=== PATIENT | female | born 1995 | race American Indian/Alaskan Native ===

== ENCOUNTER 2018-02-28 17:22 | Emergency (ER) | payer MEDICAID, SELFPAY ==
--- NOTE | 2018-02-28 17:28 | ED.ANIMALBIT ---
HPI - Animal Bite <JORDAN Mckinney - Last Filed: 02/28/18 22:32> General Chief Complaint: Animal Bite Stated Complaint: BIT BY DOG LEFT LEG Time Seen by Provider: 02/28/18 17:28 Source: patient Mode of arrival: ambulatory Limitations: no limitations History of Present Illness HPI narrative: Healthy 23-year-old female here for complaint of a dog bite to her left anterior thigh. [place] and about 3 o'clock in the afternoon a dog came and bit her on the thigh. She reports that the dog's cut off sawyer is did not stop and left the area. This happened in [facility]. She states no other injuries or concerns at this time. She does not know her last tetanus shot. She was able to ambulate into the emergency room. complaint: animal bite Related Data Allergies Allergy/AdvReac Type Severity Reaction Status Date / Time No Known Drug Allergies Allergy Verified 02/28/18 17:42 Review of Systems <JORDAN Mckinney - Last Filed: 02/28/18 22:32> Constitutional Denies chills, Denies fever(s), Denies lethargy and Denies weakness Eyes Denies change in vision, Denies eye discharge, Denies irritation and Denies loss of vision ENT Ears, Nose, Mouth, and Throat: Denies change in voice, Denies neck pain and Denies sore throat Cardiovascular Denies chest pain, Denies irregular heart rhythm, Denies lightheadedness, Denies palpitations, Denies dyspnea, Denies dyspnea on exertion and Denies orthopnea Respiratory Denies cough, Denies dyspnea, Denies dyspnea on exertion and Denies wheezing Gastrointestinal Gastrointestinal: Denies abdominal pain, Denies change in bowel habits, Denies diarrhea, Denies nausea and Denies vomiting Genitourinary Denies hematuria, Denies flank pain, Denies urinary incontinence and Denies urinary urgency Musculoskeletal Denies neck pain Comments: Dog bite/abrasion to left anterior thigh Integumentary/Breasts Denies pruritus, Denies erythema, Denies rash and Denies wounds Neurologic Denies confusion, Denies loss of vision and Denies weakness Psychiatric Denies anxiety, Denies confusion, Denies depression, Denies homicidal ideation and Denies suicidal ideation Endocrine Denies palpitations Hematologic/Lymphatic Denies easy bruising Allergic/Immunologic Denies wheezing Exam <JORDAN Mckinney - Last Filed: 02/28/18 22:32> Initial Vital Signs Initial Vital Signs: Vital Signs Temperature 98.4 F 02/28/18 17:34 Pulse Rate 88 02/28/18 17:34 Respiratory Rate 20 02/28/18 17:34 Blood Pressure 142/87 H 02/28/18 17:34 Pulse Oximetry 100 02/28/18 17:34 Const General: cooperative and well developed Nutritional Appearance: well nourished Orientation: alert, awake, oriented x3 and not confused [facility] Mouth: oral mucosae normal and moist mucous membranes Eyes Conjunctivae: conjunctivae normal Sclera: sclerae normal Pupils: PERRL EOM: EOM intact bilaterally Resp Effort & Inspection: normal respiratory effort, able to speak in complete sentences, no respiratory distress and no use of accessory muscles Auscultation: clear to auscultation bilaterally, no rales, no rhonchi and no wheezes Cardio Rate: regular rate Rhythm: regular rhythm Heart Sounds: no click, no gallops, no murmurs and no rubs Pulses: normal peripheral pulses Skin General: no rashes or lesions noted, No jaundice and No petechiae Neuro General: alert, oriented x3, gait normal and no focal motor deficits Speech: speech normal Extrem Other: Superficial abrasion to the left anterior thigh with no puncture wounds or lacerations seen. Slight ecchymosis to the area. Distal sensation is intact. Distal pulses are intact. Distal range of motion is intact. <Twan Leyva DO - Last Filed: 03/01/18 07:12> Initial Vital Signs Initial Vital Signs: Vital Signs Temperature 98.4 F 02/28/18 17:34 Pulse Rate 88 02/28/18 17:34 Respiratory Rate 20 02/28/18 17:34 Blood Pressure 142/87 H 02/28/18 17:34 Pulse Oximetry 100 02/28/18 17:34 Course <JORDAN Mckinney - Last Filed: 02/28/18 22:32> Orders Ordered: Discontinued Medications Amoxicillin/Clavulanate Potassium (Augmentin 875-125 Mg) 1 tab PO NOW ONE Stop: 02/28/18 17:35 Last Admin: 02/28/18 17:43 Dose: 1 tab Diphtheria/Tetanus/Acell Pertussis (Adacel) 0.5 ml IM .ONCE ONE Stop: 02/28/18 17:35 Last Admin: 02/28/18 17:43 Dose: 0.5 ml Ibuprofen (Advil) 400 mg PO NOW ONE Stop: 02/28/18 17:35 Last Admin: 02/28/18 17:43 Dose: 400 mg Vital Signs - 8 hr 02/28/18 17:34 Temperature 98.4 F Pulse Rate 88 Respiratory Rate 20 Blood Pressure 142/87 H Pulse Oximetry 100 <Twan Leyva DO - Last Filed: 03/01/18 07:12> Orders Ordered: Discontinued Medications Amoxicillin/Clavulanate Potassium (Augmentin 875-125 Mg) 1 tab PO NOW ONE Stop: 02/28/18 17:35 Last Admin: 02/28/18 17:43 Dose: 1 tab Diphtheria/Tetanus/Acell Pertussis (Adacel) 0.5 ml IM .ONCE ONE Stop: 02/28/18 17:35 Last Admin: 02/28/18 17:43 Dose: 0.5 ml Ibuprofen (Advil) 400 mg PO NOW ONE Stop: 02/28/18 17:35 Last Admin: 02/28/18 17:43 Dose: 400 mg Vital Signs - 8 hr 02/28/18 17:34 Temperature 98.4 F Pulse Rate 88 Respiratory Rate 20 Blood Pressure 142/87 H Pulse Oximetry 100 MDM - Animal Bite <JORDAN Mckinney - Last Filed: 02/28/18 22:32> [facility] Narrative Medical decision making narrative: She reports daughter was a domesticated dog so low risk of rabies. [facility] by report was filled out. Her tetanus was updated in the emergency room. Wound area was cleansed well and dressed with bacitracin and a dressing. [id number] Tylenol or Motrin as needed for any discomfort. Antibiotic prophylaxis not indicated due as superficial wound. Follow up with primary care provider later this week. Return emergency room for any worsening symptoms or signs of infection. Discharge Plan Departure Patient Disposition: Home, Self-Care Clinical Impression: Dog bite Discharge Date/Time: 02/28/18 18:03 Interventions: ED Discharge Assessment Last Done: 02/28/18 18:01 Instructions: DI for Dog Bite Activity Restrictions/Additional Instructions: A grazing wound to the left thigh was cleansed and dressed with bacitracin and a dressing. Dress wound daily with bacitracin and dressing until healed. Use [id number] Tylenol or Motrin as needed for any discomfort. Follow up with primary care provider later this week. Tetanus was updated in the emergency room. For any worsening symptoms or signs of infection return to the emergency room. Referrals: [facility] [Provider Group] <Twan Leyva DO - Last Filed: 03/01/18 07:12> [facility] ED Attending Dejaature Attestation: I was available for consultation during this patient's emergency department encounter
[2018-02-28 17:34] VITALS: BP 142/87; PULSE 88; RESP 20; TEMP 36.9; O2SAT 100
[2018-02-28] MEDS: TET,DIPH,PERTUSS(ACELL),VAC/PF 0.5 ML SYRINGE IM (17:43)
[2018-02-28] MEDS: IBUPROFEN 400 MG TABLET PO (17:43)
[2018-02-28] MEDS: AMOXICILLIN/CLAV 875/125 MG 1 TAB PO (17:43)
== END 2018-02-28 18:03 | disposition home or self-care (01) ==
PROVIDERS: Emergency Provider Nurse Practitioner Family
DX: S81.852A Open bite, left lower leg, initial encounter (principal); W54.0XXA Bitten by dog, initial encounter
CPT/HCPCS: 90471; 99283; 90715

== ENCOUNTER 2018-12-28 22:07 | Emergency (ER) | payer MEDICAID, SELFPAY ==
[2018-12-28 22:14] VITALS: BMI 20.5
[2018-12-28 22:18] VITALS: BP 108/63; PULSE 85; RESP 15; TEMP 37; O2SAT 100
[2018-12-28 22:33] LABS: Bacteria Urine None Seen
[2018-12-28] MEDS: ONDANSETRON 4 MG/2 ML INJ IV (22:49)
[2018-12-28] MEDS: SODIUM CHLORIDE 0.9% 1,000 ML 1000 ML IV (22:49)
[2018-12-28 22:51] LABS: Add Manual Diff / Slide Review NO; Basophils Absolute Auto 0 /uL (0-100); Basophils Percent Auto 0.5 % (0-2); Eosinophils Absolute Auto 100 /uL (0-450); Eosinophils Percent Auto 2.1 % (2-4); Hematocrit 38.4 % (36-46); Hemoglobin 12.9 g/dL (12.0-16.0); Lymphocytes Absolute Auto 2700 /uL (1100-4500); Lymphocytes Percent Auto 44.7 % (25-40); Mean Corpuscular HGB Conc 33.7 % (30-36); Mean Corpuscular Hemoglobin 29.4 PG (26-34); Mean Corpuscular Volume 87.4 fL (80-100); Monocytes Absolute Auto 400 /uL (0-900); Neutrophils Absolute Auto 2700 /uL (1500-7000); Neutrophils Percent Auto 45.7 % (50-75); Platelet Count 194 X10^3/uL (150-400); Red Blood Cell Count 4.39 X10^6/uL (4.0-5.2); Red Cell Distribution Width 13.8 % (11.6-14.8); White Blood Cell Count 5.9 X10^3/uL (4.5-11.0)
[2018-12-28 22:51] LABS: Culture Indicated Urine Cult Not Indicated; RBC Urine 0-1/HPF (0-5/HPF); WBC Urine 0-1/HPF (0-5/HPF)
[2018-12-28 22:59] LABS: Alanine Aminotransferase 14 IU/L (9-52); Albumin 4.4 g/dL (3.5-5.0); Albumin Globulin Ratio 1.4 (1.0-2.8); Alkaline Phosphatase 72 U/L (38-126); Aspartate Aminotransferase 25 IU/L (14-36); Bilirubin Total 0.5 mg/dL (0.2-1.3); Blood Urea Nitrogen 14 mg/dL (7-17); Calcium 9.2 mg/dL (8.4-10.2); Carbon Dioxide 27 mmol/L (22-32); Chloride 103 mmol/L (98-107); Estimated Glomerular Filt Rate > 60.0 mL/min (>60); Globulin 3.2 g/dL (1.7-4.1); Glucose 93 mg/dL (70-100); HEMOLYSIS < 15 (0-50); Potassium 3.8 mmol/L (3.4-5.1); Sodium 138 mmol/L (137-145); Total Protein 7.6 g/dL (6.3-8.2)
--- NOTE | 2018-12-28 23:02 | ED_ITS ---
HPI - Headache General Chief Complaint: Headache Stated Complaint: LIGHTHEADED Time Seen by Provider: 12/28/18 23:01 Source: patient and family Mode of arrival: ambulatory Limitations: no limitations History of Present Illness HPI Narrative: Patient is a 23-year-old female who presents with headache and dizziness ongoing for the last 5 days. She typically does not get headaches. She woke up 5 days ago with this headache. She felt like the room was spinning has been nauseated at times. She has been taking Tylenol, ibuprofen and Dramamine [id number]. Nothing seems to be helping it does not really seem be getting worse but she really can't get out of bed. She denies fever or chills no neck pain no rash. MD Complaint: headache Onset description: sudden Severity: moderate Quality: aching Related Data Previous Rx's Medication Instructions Recorded ondansetron 4 mg PO Q6-8H PRN #10 tab 12/29/18 Allergies Allergy/AdvReac Type Severity Reaction Status Date / Time No Known Drug Allergies Allergy Verified 02/28/18 17:42 Review of Systems Review of Systems GENERAL: Denies chills, fatigue, malaise, fever, sweats, travel HEENT: Denies sinus pain, ear pain, sore throat, difficulty swallowing, neck pain RESPIRATORY: Denies dyspnea, cough, wheezing, hemoptysis, sputum. CARDIOVASCULAR: Denies chest pain, palpitations, orthopnea, edema GASTROINTESTINAL: Denies nausea, vomiting, abdominal pain, diarrhea, constipation, melena. : Denies dysuria, frequency, incontinence, hematuria, urinary retention, flank pain. MUSCULOSKELETAL: Denies weakness, joint pain, or bony pain SKIN: No rash, no erythema, no pruritus NEUROLOGIC: HPI PSYCHIATRIC: No concerning psychosocial issues. 12 point review of systems is negative except for those stated above and HPI PFSH Medical History Patient denies significant medical history (Acute) Social History Smoking Status: Never smoker Social History Smoking Status: Never smoker Exam Initial Vital Signs Initial Vital Signs: Vital Signs Temperature 98.6 F 12/28/18 22:18 Pulse Rate 85 12/28/18 22:18 Respiratory Rate 15 12/28/18 22:18 Blood Pressure 108/63 12/28/18 22:18 Pulse Oximetry 100 12/28/18 22:18 GENERAL: Alert young female appears to not feel well. Curled up in position HEENT: Head atraumatic,EOMI, pupils reactive CARDIOVASCULAR: Regular rate and rhythm without murmurs, rubs or gallops. RESPIRATORY: Breath sounds equal bilaterally, no wheezes rales or rhonchi. ABDOMEN: Soft, nontender. Normoactive bowel sounds all 4 quadrants. No guarding or rebound. EXTREMITIES: Normal range of motion, no clubbing or edema. Neurovascularly intact NEUROLOGICAL: Alert and oriented x4.Normal gait and speech. Cranial nerves II through XII grossly intact. Clinical Services Professional strength equal bilaterally sensation to soft touch equal bilaterally SKIN: Warm, dry, no laceration, no petechiae, no rashes or lesions. Course Orders Ordered: ED Orders 12/28/18 22:30 Urine Microscopic Stat 12/28/18 22:40 Complete Blood Count AUTO DIFF Stat Comprehensive Metabolic Panel Stat 12/28/18 23:08 CT head/brain wo con Stat Discontinued Medications Diphenhydramine HCl (Benadryl) 25 mg IV NOW ONE Stop: 12/29/18 00:19 Last Admin: 12/29/18 00:26 Dose: 25 mg Sodium Chloride (Normal Saline 0.9%) 1,000 mls @ 1,000 mls/hr IV BOLUS ONE Stop: 12/28/18 23:41 Last Infusion: 12/28/18 23:56 Dose: 0 mls/hr Admin: 12/28/18 22:49 Dose: 1,000 mls/hr Ketorolac Tromethamine (Toradol) 30 mg IV NOW ONE Stop: 12/28/18 23:01 Last Admin: 12/28/18 23:51 Dose: 30 mg Ondansetron HCl (Zofran) 4 mg IV NOW ONE Stop: 12/28/18 22:43 Last Admin: 12/28/18 22:49 Dose: 4 mg Prochlorperazine (Compazine) 10 mg IV NOW ONE Stop: 12/29/18 00:19 Last Admin: 12/29/18 00:27 Dose: 10 mg Vital Signs - 8 hr 12/28/18 22:18 12/29/18 00:45 12/29/18 01:39 Temperature 98.6 F Pulse Rate 85 66 89 Respiratory Rate 15 14 14 Blood Pressure 103/47 L Blood Pressure [Left Arm] 108/63 101/65 Pulse Oximetry 100 100 98 MDM - Headache Lab Data Attestation: I reviewed the patient's lab results. Result diagrams: 12/28/18 22:40 12/28/18 22:40 Lab Results 12/28/18 12/28/18 12/28/18 Range/Units 22:30 22:40 22:40 WBC 5.9 (4.5-11.0) X10^3/uL RBC 4.39 (4.0-5.2) X10^6/uL Hgb 12.9 (12.0-16.0) g/dL Hct 38.4 (36-46) % MCV 87.4 (80-100) fL MCH 29.4 (26-34) PG MCHC 33.7 (30-36) % RDW 13.8 (11.6-14.8) % Plt Count 194 (150-400) X10^3/uL Neut % (Auto) 45.7 L (50-75) % Lymph % (Auto) 44.7 H (25-40) % [place] % (Auto) 7.0 (3-14) % Eos % (Auto) 2.1 (2-4) % Baso % (Auto) 0.5 (0-2) % Neut # (Auto) 2700 (9833-9683) /uL Lymph # (Auto) 2700 (2047-9987) /uL [place] # (Auto) 400 (0-900) /uL Eos # (Auto) 100 (0-450) /uL Baso # (Auto) 0 (0-100) /uL Sodium 138 (137-145) mmol/L Potassium 3.8 (3.4-5.1) mmol/L Chloride 103 (98-107) mmol/L Carbon Dioxide 27 (22-32) mmol/L BUN 14 (7-17) mg/dL Creatinine 0.70 (0.52-1.04) mg/dL Estimated GFR > 60.0 (>60) mL/min BUN/Creatinine Ratio 20.0 (6-22) Glucose 93 (70-100) mg/dL Calcium 9.2 (8.4-10.2) mg/dL Total Bilirubin 0.5 (0.2-1.3) mg/dL AST 25 (14-36) IU/L ALT 14 (9-52) IU/L Alkaline Phosphatase 72 (38-126) U/L Total Protein 7.6 (6.3-8.2) g/dL Albumin 4.4 (3.5-5.0) g/dL Globulin 3.2 (1.7-4.1) g/dL Albumin/Globulin Ratio 1.4 (1.0-2.8) Urine RBC 0-1/hpf (0-5/HPF) Urine WBC 0-1/hpf (0-5/HPF) Urine Bacteria None seen (None) Ur Culture Indicated? Cult not indicated Point of Care Testing Test Results Negative Imaging Data CT scan - head: Radiologist's impression: operation shift supervisor report: No acute intracranial disease. MDM Narrative Medical decision making narrative: The patient initially not feeling much better after Zofran and Toradol. She is given Benadryl Compazine. Now sitting up with overall clinically appears much better and improved. She states that she feels better and is ready and able to go home. She is given Zofran to go home with. Symptoms more consistent with vertigo and migraine like headache. She does with ambulatory to the restroom couple of times no assistance. Discharge Plan Departure Patient Disposition: Home Clinical Impression: Benign paroxysmal positional vertigo Qualifiers: Laterality: unspecified laterality Qualified Code(s): H81.10 - Benign paroxysm al vertigo, unspecified ear Discharge Date/Time: 12/29/18 01:39 Interventions: ED Discharge Assessment Last Done: 12/29/18 01:39 Instructions: DI for Migraine, DI for Benign Paroxysmal Positional Vertigo Activity Restrictions/Additional Instructions: *You have been diagnosed with benign paroxysmal positional vertigo *What to do: Rest, increase fluids *Continue to take medications as directed Zofran 4 mg every 6-8 hours if needed for nausea or vomiting *Follow up with your primary care provider in 2-3 days *Return to ER if you should have persistent dizziness inability to tolerate fluids, worsening headache or any new, worsening or concerning symptoms Prescriptions: New ondansetron 4 mg tablet,disintegrating 4 mg PO Q6-8H PRN (Reason: nausea and vomiting) Qty: 10 RF: 0
--- NOTE | 2018-12-28 23:08 | DI.CT.S_ITS ---
PROCEDURE: CT HEAD/BRAIN WO CON INDICATIONS: headache 5 days getting worse dizzy TECHNIQUE: Noncontrast 4.5 mm thick angled axial sections acquired from the foramen magnum to the vertex, with coronal and sagittal reformats. For radiation dose reduction, the following was used: automated exposure control, adjustment of mA and/or kV according to patient size. COMPARISON: None. FINDINGS: Image quality: Excellent. CSF spaces: Basal cisterns are patent. No extra-axial fluid collections. Ventricles are normal in size and shape. Brain: No midline shift. No intracranial masses or hemorrhage. Rm-white matter interface is normal. Skull and face: Calvarium and visualized facial bones are intact, without suspicious lesions. Sinuses: Visualized sinuses and mastoids are clear. IMPRESSION: No acute intracranial disease process. Dictated by: Graciela Salomon MD, PhD on 12/29/2018 at 7:28 Approved by: Graciela Salomon MD, PhD on 12/29/2018 at 7:29
[2018-12-28] MEDS: KETOROLAC 60 MG/2 ML VIAL 30 MG IV (23:51)
[2018-12-29] MEDS: diphenhydrAMINE 50 MG/ML VIAL 25 MG IV (00:26)
[2018-12-29] MEDS: PROCHLORPERAZINE 10 MG/2 ML VIAL IV (00:27)
[2018-12-29 00:45] VITALS: BP 101/65; PULSE 66; RESP 14; O2SAT 100
[2018-12-29 01:39] VITALS: BP 103/47; PULSE 89; RESP 14; O2SAT 98
== END 2018-12-29 01:39 | disposition home or self-care (01) ==
PROVIDERS: Emergency Provider Emergency Medicine
DX: H81.10 Benign paroxysmal vertigo, unspecified ear (principal); R51 Headache
CPT/HCPCS: 36591; 70450; 80053; 81015; 81025; 85025; 96361; 96374; 96375; 99283; 99284; J0780; J1200; J1885; J2405

== ENCOUNTER → 2019-12-07 14:24 | Outpatient (CLI) | payer MEDICAID, SELFPAY ==
[2019-12-07 16:29] LABS: Prolactin 19.7 ng/mL (3.0-18.6)
[2019-12-07 16:44] LABS: TSH w/ Reflex to FT4 0.72 uIU/mL (0.47-4.68)
== END ==
PROVIDERS: Referring Provider Registered Nurse; Visit Provider Registered Nurse
DX: N97.9 Female infertility, unspecified (principal); N92.0 Excessive and frequent menstruation with regular cycle
CPT/HCPCS: 36415; 84144; 84146; 84443

== ENCOUNTER → 2020-07-04 12:54 | Outpatient (CLI) | payer MEDICAID, SELFPAY | PROVIDERS: Referring Provider Internal Medicine; Visit Provider Internal Medicine | DX: Z23 Encounter for immunization (principal) | CPT/HCPCS: 90471; 90686 ==

== ENCOUNTER 2020-10-06 17:19 | Emergency (ER) | payer MEDICAID, SELFPAY ==
[2020-10-06 17:20] VITALS: BP 130/78; PULSE 94; RESP 14; TEMP 36.7; O2SAT 99
--- NOTE | 2020-10-06 17:32 | DI.US.S_ITS ---
PROCEDURE: US PELVIC COMPLETE INDICATIONS: FIVE WEEKS . BLEEDING. LAST MENSTRUAL PERIOD 08/27/20 TECHNIQUE: Real-time scanning was performed of the pelvic organs, with image documentation. Additional endovaginal scanning was necessary due to incomplete visualization of the adnexal and endometrial structures by transabdominal scanning. COMPARISON: None. FINDINGS: Uterus: Uterus is normal in size at 7.4 x 4.8 x 3.8 cm. The endometrium measures 11 mm in combined thickness. No evidence for significant decidual reaction of the endometrium. No intrauterine gestation visualized. Ovaries: Right ovary measures 3.7 x 2.2 x 1.6 cm. Left ovary measures 2.8 x 2.7 x 1.6 cm. No ovarian or adnexal mass lesions. Other: Small amount of pelvic free fluid in the posterior cul-de-sac. IMPRESSION: 1. No sonographic evidence for intrauterine gestation. Findings may represent an early intrauterine gestation although a missed not excluded. 2. Normal sonographic appearance of the bilateral ovaries. Although less likely, ectopic cannot be completely excluded at this time. Recommend continued clinical and laboratory evaluations with serial quantitative HCG measurements and followup imaging as indicated. Dictated by: Pee Siddiqi M.D. on 10/06/2020 at 18:16 Approved by: Pee Siddiqi M.D. on 10/06/2020 at 18:20
[2020-10-06 17:42] LABS: Add Manual Diff / Slide Review NO; Basophils Absolute Auto 0 /uL (0-100); Basophils Percent Auto 0.6 % (0-2); Eosinophils Absolute Auto 0 /uL (0-450); Eosinophils Percent Auto 0.5 % (2-4); Hematocrit 40.3 % (36-46); Hemoglobin 13.5 g/dL (12.0-16.0); Lymphocytes Absolute Auto 1400 /uL (1100-4500); Lymphocytes Percent Auto 40.3 % (25-40); Mean Corpuscular HGB Conc 33.6 % (30-36); Mean Corpuscular Hemoglobin 29.1 PG (26-34); Mean Corpuscular Volume 86.6 fL (80-100); Monocytes Absolute Auto 500 /uL (0-900); Monocytes Percent Auto 13.3 % (3-14); Neutrophils Absolute Auto 1600 /uL (1500-7000); Neutrophils Percent Auto 45.3 % (50-75); Platelet Count 188 X10^3/uL (150-400); Red Blood Cell Count 4.65 X10^6/uL (4.0-5.2); Red Cell Distribution Width 13.1 % (11.6-14.8); White Blood Cell Count 3.6 X10^3/uL (4.5-11.0)
--- NOTE | 2020-10-06 17:42 | PC.NURSE ---
pt, bleeding as per triage note.
[2020-10-06 17:49] LABS: Alanine Aminotransferase 14 IU/L (<35); Albumin 4.4 g/dL (3.5-5.0); Albumin Globulin Ratio 1.3 (1.0-2.8); Alkaline Phosphatase 70 U/L (38-126); Aspartate Aminotransferase 31 IU/L (14-36); BUN Creatinine Ratio 18.5 (6-22); Blood Urea Nitrogen 12 mg/dL (7-17); Calcium 8.6 mg/dL (8.4-10.2); Carbon Dioxide 29 mmol/L (22-32); Chloride 102 mmol/L (98-107); Estimated Glomerular Filt Rate > 60.0 mL/min (>60); Globulin 3.4 g/dL (1.7-4.1); Glucose 130 mg/dL (70-100); HEMOLYSIS < 15 (0-50); Potassium 3.3 mmol/L (3.4-5.1); Sodium 136 mmol/L (137-145); Total Protein 7.8 g/dL (6.3-8.2)
--- NOTE | 2020-10-06 17:54 | ED.PREGNANCY ---
HPI - <DOLORES Paiz - Last Filed: 10/06/20 19:22> General Chief complaint: Vaginal Bleeding Stated complaint: 5Wks , Bleeding Time Seen by Provider: 10/06/20 17:30 Source: patient Mode of arrival: Ambulatory Limitations: no limitations History of Present Illness HPI Narrative: The patient is a 25-year-old female nonsmoker who denies pertinent medical history, G1, P 0 who presents with a chief complaint of vaginal bleeding during early . She states her last menstrual period date was 08/27/2020, that she is about 5 weeks and noticed to have some spotting 3 days ago when she wiped. She states that initially the blood was brown, but it changed her red today so she came to the emergency department. She complains of slight cramping. She states she is not blood through pad. Denies any urinary urgency frequency or dysuria. She has a telehealth appointment with Emir SCHMIDT at the end of the month. This is her 1st . She denies any vaginal discharge fever etcetera Related Data Home Medications Medication Instructions Recorded Confirmed vit no.[id number] 1 tab PO DAILY 10/06/20 10/06/20 [Classic ] Allergies Allergy/AdvReac Type Severity Reaction Status Date / Time No Known Drug Allergies Allergy Verified 10/06/20 17:36 Review of Systems <DOLORES Paiz - Last Filed: 10/06/20 19:22> Review of Systems Narrative: GENERAL: Denies chills, fatigue, malaise, fever, sweats. HEENT: Denies sinus pain, ear pain, sore throat, difficulty swallowing, dizziness. RESPIRATORY: Denies dyspnea, cough, wheezing, hemoptysis, sputum. CARDIOVASCULAR: Denies chest pain, palpitations, orthopnea, edema, GASTROINTESTINAL: Denies nausea, vomiting, abdominal pain, diarrhea, constipation, melena. : See HPI MUSCULOSKELETAL: denies weakness, joint pain, or bony pain SKIN: Denies rash, skin lesions, or other NEUROLOGIC: Denies weakness, headache, numbness, change in speech, confusion, seizures, incoordination. PSYCHIATRIC: No concerning psychosocial issues. 12 point review of systems is negative except for those stated above Exam <DOLORES Paiz - Last Filed: 10/06/20 19:22> Narrative Exam Narrative: GENERAL: This is a well-nourished, well-developed patient, in no acute distress HEAD: Atraumatic. Normocephalic. No temporal or scalp tenderness. EYES: Pupils equal round and reactive. Extraocular motions intact. No scleral icterus. No injection or drainage. ENT: Nose without bleeding, purulent drainage or septal hematoma. See HPI Airway patent. NECK: Trachea midline. No JVD or lymphadenopathy. Supple, nontender, no meningeal signs. CARDIOVASCULAR: Regular rate and rhythm RESPIRATORY: Clear to auscultation. Breath sounds equal bilaterally. No wheezes, rales, or rhonchi. No cough. No increased respiratory effort. No accessory muscle use. GASTROINTESTINAL: Abdomen soft, slight suprapubic cramping palpation, nondistended. Active bowel sounds all 4 quadrants. No guarding. EXTREMITIES: No clubbing, cyanosis, or edema. No joint tenderness, effusion, or edema noted. BACK: Nontender without deformity or crepitance. No flank tenderness. NEURO: AOx3. SKIN: No rash or erythema on visible skin Initial Vital Signs Initial Vital Signs: Vital Signs Temperature 98.1 F 10/06/20 17:20 Pulse Rate 94 H 10/06/20 17:20 Respiratory Rate 14 10/06/20 17:20 Blood Pressure 130/78 10/06/20 17:20 Pulse Oximetry 99 10/06/20 17:20 <Joanne Figueroa DO - Last Filed: 10/07/20 05:18> Initial Vital Signs Initial Vital Signs: Vital Signs Temperature 98.1 F 10/06/20 17:20 Pulse Rate 94 H 10/06/20 17:20 Respiratory Rate 14 10/06/20 17:20 Blood Pressure 130/78 10/06/20 17:20 Pulse Oximetry 99 10/06/20 17:20 Scores <SUSANNE Paiz - Last Filed: 10/06/20 19:22> GCS [place] coma scale eye opening: Spontaneous [place] coma scale verbal response: Orientated [place] coma scale motor response: Obey commands [place] coma scale total score: 15 Course <SUSANNE Paiz - Last Filed: 10/06/20 19:22> Orders Ordered: Discontinued Medications Potassium Chloride (Potassium Chloride 20 Meq Tab) 20 meq PO NOW ONE Stop: 10/06/20 19:18 Last Admin: 10/06/20 19:23 Dose: Not Given Documented by: MICHAEL Vital Signs Vital signs: Vital Signs - 8 hr 10/06/20 17:20 Temperature 98.1 F Pulse Rate 94 H Respiratory Rate 14 Blood Pressure 130/78 Pulse Oximetry 99 <Joanne Figueroa DO - Last Filed: 10/07/20 05:18> Orders Ordered: Discontinued Medications Potassium Chloride (Potassium Chloride 20 Meq Tab) 20 meq PO NOW ONE Stop: 10/06/20 19:18 Last Admin: 10/06/20 19:23 Dose: Not Given Documented by: MICHAEL Vital Signs Vital signs: Vital Signs - 8 hr 10/06/20 17:20 Temperature 98.1 F Pulse Rate 94 H Respiratory Rate 14 Blood Pressure 130/78 Pulse Oximetry 99 MDM - OB/Uterine Contractions <SUSANNE Paiz - Last Filed: 10/06/20 19:22> Lab Data Attestation: I reviewed the patient's lab results. Result diagrams: 10/06/20 17:30 10/06/20 17:30 Labs: Lab Results 10/06/20 10/06/20 10/06/20 Range/Units 17:30 17:30 17:30 WBC 3.6 L (4.5-11.0) X10^3/uL RBC 4.65 (4.0-5.2) X10^6/uL Hgb 13.5 (12.0-16.0) g/dL Hct 40.3 (36-46) % MCV 86.6 (80-100) fL MCH 29.1 (26-34) PG MCHC 33.6 (30-36) % RDW 13.1 (11.6-14.8) % Plt Count 188 (150-400) X10^3/uL Neut % (Auto) 45.3 L (50-75) % Lymph % (Auto) 40.3 H (25-40) % [place] % (Auto) 13.3 (3-14) % Eos % (Auto) 0.5 L (2-4) % Baso % (Auto) 0.6 (0-2) % Neut # (Auto) 1600 (2779-6558) /uL Lymph # (Auto) 1400 (0992-0483) /uL [place] # (Auto) 500 (0-900) /uL Eos # (Auto) 0 (0-450) /uL Baso # (Auto) 0 (0-100) /uL Sodium 136 L (137-145) mmol/L Potassium 3.3 L (3.4-5.1) mmol/L Chloride 102 (98-107) mmol/L Carbon Dioxide 29 (22-32) mmol/L BUN 12 (7-17) mg/dL Creatinine 0.65 (0.52-1.04) mg/dL Estimated GFR > 60.0 (>60) mL/min BUN/Creatinine Ratio 18.5 (6-22) Glucose 130 H (70-100) mg/dL Calcium 8.6 (8.4-10.2) mg/dL Total Bilirubin < 0.1 L (0.2-1.3) mg/dL AST 31 (14-36) IU/L ALT 14 (<35) IU/L Alkaline Phosphatase 70 (38-126) U/L Total Protein 7.8 (6.3-8.2) g/dL Albumin 4.4 (3.5-5.0) g/dL Globulin 3.4 (1.7-4.1) g/dL Albumin/Globulin Ratio 1.3 (1.0-2.8) HCG, Quant 23.8 mIU/mL Blood Type O Positive Point of Care Testing Test Results Positive Urine Dip Bedside Urine Glucose Negative Bedside Urine Bilirubin - Negative Bedside Urine Ketone - Negative Urine Specific [place] 1.025 Bedside Urine Occult Blood +++ Bedside Urine pH 6 Bedside Urine Protein + 30 Bedside Urine Urobilinogen - Negative Bedside Urine Nitrite - Negative Bedside Urine Leukocytes - Negative Esterase Imaging Data US - OB: Radiologist's Impression: [address] [place] [id number] ReportSigned Patient: Jennifer Dunaway#: [id number]: 1995Acct:[id number]/Sex: 25 / FDate of Service: 10/06/20Loc: EDAccession Number: [id number] Procedure: US pelvic complete Ordering Provider: Joanne Kwan [facility]- PROCEDURE: US PELVIC COMPLETE INDICATIONS: FIVE WEEKS . BLEEDING. LAST MENSTRUAL PERIOD 08/27/20 TECHNIQUE: Real-time scanning was performed of the pelvic organs, with image documentation. Additional endovaginal scanning was necessary due to incomplete visualization of the adnexal and endometrial structures by transabdominal scanning. COMPARISON: None. FINDINGS: Uterus: Uterus is normal in size at 7.4 x 4.8 x 3.8 cm. The endometrium measures 11 mm in combined thickness. No evidence for significant decidual reaction of the endometrium. No intrauterine gestation visualized. Ovaries: Right ovary measures 3.7 x 2.2 x 1.6 cm. Left ovary measures 2.8 x 2.7 x 1.6 cm. No ovarian or adnexal mass lesions. Other: Small amount of pelvic free fluid in the posterior cul-de-sac. IMPRESSION: 1. No sonographic evidence for intrauterine gestation. Findings may represent an early intrauterine gestation although a missed not excluded. 2. Normal sonographic appearance of the bilateral ovaries. Although less likely, ectopic cannot be completely excluded at this time. Recommend continued clinical and laboratory evaluations with serial quantitative HCG measurements and followup imaging as indicated. Dictated by: Pee Siddiqi M.D. on 10/06/2020 at 18:16 Approved by: Pee Siddiqi M.D. on 10/06/2020 at 18:20 MDM Narrative Medical decision making narrative: The patient is a 25-year-old female approximately 5 weeks presents with a chief complaint of vaginal bleeding for the past 3 days. Ultrasound shows no evidence of intrauterine , though as we discussed she is very early in . However her beta HCG is less than 25. This combined with vaginal bleeding make me concerned about a potential miscarriage. She is O positive. I discussed the patient with Dr. Grey, on-call OBGYN who is willing to follow up with her as she has no primary care provider established in the area. The patient was given a work note for few days off of work to rest and push fluids. She was given an order for repeat lab work on Thursday with results to Dr. Grey. I did discuss at length the possibility that I cannot determine what is going on today, she will need repeat lab work, though her hormone is a bit lower than I would anticipate if her dates are correct. Discussed going back to ER for acute concerns. Patient and fiance have no questions or concerns upon discharge state understanding of return precautions as well as follow-up care. <Joanne Figueroa, DO - Last Filed: 10/07/20 05:18> Lab Data Labs: Lab Results 10/06/20 10/06/20 10/06/20 Range/Units 17:30 17:30 17:30 WBC 3.6 L (4.5-11.0) X10^3/uL RBC 4.65 (4.0-5.2) X10^6/uL Hgb 13.5 (12.0-16.0) g/dL Hct 40.3 (36-46) % MCV 86.6 (80-100) fL MCH 29.1 (26-34) PG MCHC 33.6 (30-36) % RDW 13.1 (11.6-14.8) % Plt Count 188 (150-400) X10^3/uL Neut % (Auto) 45.3 L (50-75) % Lymph % (Auto) 40.3 H (25-40) % [place] % (Auto) 13.3 (3-14) % Eos % (Auto) 0.5 L (2-4) % Baso % (Auto) 0.6 (0-2) % Neut # (Auto) 1600 (2124-5275) /uL Lymph # (Auto) 1400 (6045-6057) /uL [place] # (Auto) 500 (0-900) /uL Eos # (Auto) 0 (0-450) /uL Baso # (Auto) 0 (0-100) /uL Sodium 136 L (137-145) mmol/L Potassium 3.3 L (3.4-5.1) mmol/L Chloride 102 (98-107) mmol/L Carbon Dioxide 29 (22-32) mmol/L BUN 12 (7-17) mg/dL Creatinine 0.65 (0.52-1.04) mg/dL Estimated GFR > 60.0 (>60) mL/min BUN/Creatinine Ratio 18.5 (6-22) Glucose 130 H (70-100) mg/dL Calcium 8.6 (8.4-10.2) mg/dL Total Bilirubin < 0.1 L (0.2-1.3) mg/dL AST 31 (14-36) IU/L ALT 14 (<35) IU/L Alkaline Phosphatase 70 (38-126) U/L Total Protein 7.8 (6.3-8.2) g/dL Albumin 4.4 (3.5-5.0) g/dL Globulin 3.4 (1.7-4.1) g/dL Albumin/Globulin Ratio 1.3 (1.0-2.8) HCG, Quant 23.8 mIU/mL Blood Type O Positive Point of Care Testing Test Results Positive Urine Dip Bedside Urine Glucose Negative Bedside Urine Bilirubin - Negative Bedside Urine Ketone - Negative Urine Specific [place] 1.025 Bedside Urine Occult Blood +++ Bedside Urine pH 6 Bedside Urine Protein + 30 Bedside Urine Urobilinogen - Negative Bedside Urine Nitrite - Negative Bedside Urine Leukocytes - Negative Esterase Discharge Plan Departure Patient Disposition: Home Clinical Impression: Miscarriage, threatened, early , Vaginal bleeding during Instructions: Threatened Miscarriage, DI for Vaginal Bleeding During Activity Restrictions/Additional Instructions: Thank you for trusting us with your care today. As discussed, I would like you to follow-up with Dr. Grey. I have given you a prescription for a lab draw on Thursday. Please get this done to recheck your hormone levels. It is important to know if your hormones are increasing or decreasing. Please rest and push fluids. As discussed, please come back to the emergency department for any acute concerns Prescriptions: No Action Classic 28 mg iron- 800 mcg Tablet 1 tab PO DAILY RF: 0 Referrals: Carmel Grey MD [Physician] - Stand Alone Forms: Work Release Note <Joanne Figueroa DO - Last Filed: 10/07/20 05:18> Cosign ED Attending Crista Attestation: I was immediately available in the department for consultation. Documentation has been reviewed.
[2020-10-06 17:58] LABS: Bilirubin Total < 0.1 mg/dL (0.2-1.3)
[2020-10-06 18:06] LABS: HCG Quantitative /Beta subunit 23.8 mIU/mL
[2020-10-06 19:21] VITALS: BP 133/64; PULSE 100; RESP 18; O2SAT 100
== END 2020-10-06 19:23 | disposition home or self-care (01) ==
PROVIDERS: Emergency Provider Nurse Practitioner Family
DX: O20.0 Threatened abortion (principal); Z3A.01 Less than 8 weeks gestation of pregnancy
CPT/HCPCS: 36415; 76830; 76856; 80053; 81003; 81025; 84702; 85025; 86900; 86901; 99283; 99284

== ENCOUNTER → 2020-10-08 11:19 | Outpatient (CLI) | payer MEDICAID, SELFPAY ==
[2020-10-08 12:46] LABS: HCG Quantitative /Beta subunit 44.8 mIU/mL
== END ==
PROVIDERS: Referring Provider Obstetrics & Gynecology; Visit Provider Obstetrics & Gynecology
DX: O46.90 Antepartum hemorrhage, unspecified, unspecified trimester (principal)
CPT/HCPCS: 36415; 84702

== ENCOUNTER → 2020-10-18 10:48 | Outpatient (CLI) | payer MEDICAID, SELFPAY ==
[2020-10-18 12:24] LABS: HCG Quantitative /Beta subunit 54.7 mIU/mL
== END ==
PROVIDERS: Referring Provider Obstetrics & Gynecology; Visit Provider Obstetrics & Gynecology
DX: O46.90 Antepartum hemorrhage, unspecified, unspecified trimester (principal)
CPT/HCPCS: 36415; 84702

== ENCOUNTER → 2020-10-20 11:44 | Outpatient (CLI) | payer MEDICAID, SELFPAY ==
[2020-10-20 13:45] LABS: HCG Quantitative /Beta subunit 37.1 mIU/mL
== END ==
PROVIDERS: Referring Provider Obstetrics & Gynecology; Visit Provider Obstetrics & Gynecology
DX: O46.90 Antepartum hemorrhage, unspecified, unspecified trimester (principal)
CPT/HCPCS: 36415; 84702

== ENCOUNTER → 2020-10-22 15:45 | Outpatient (CLI) | payer MEDICAID, SELFPAY ==
[2020-10-22 16:35] LABS: HCG Quantitative /Beta subunit 24.1 mIU/mL
== END ==
PROVIDERS: Referring Provider Obstetrics & Gynecology; Visit Provider Obstetrics & Gynecology
DX: O03.9 Complete or unspecified spontaneous abortion without complication (principal)
CPT/HCPCS: 36415; 84702

== ENCOUNTER 2024-01-15 08:07 | Emergency (ER) | payer MEDICAID, SELFPAY ==
[2024-01-15 08:21] VITALS: BP 121/73; PULSE 105; RESP 20; TEMP 37; O2SAT 97; BMI 29.2
--- NOTE | 2024-01-15 08:27 | DI.RAD.S_ITS ---
PROCEDURE: XR KNEE LT 3V INDICATIONS: GLF TECHNIQUE: 3 views of the knee were acquired. COMPARISON: None. FINDINGS: Bones: No fractures or dislocations. No suspicious bony lesions. Soft tissues: Small joint effusion. No suspicious soft tissue calcifications. IMPRESSION: No acute bony abnormality or significant effusion. Dictated by: Jovani Tobar M.D. on 01/15/2024 at 8:55 Approved by: Jovani oTbar M.D. on 01/15/2024 at 8:55
--- NOTE | 2024-01-15 09:07 | ED_ITS ---
HPI - Extremity Injury (Lower) General Chief Complaint: Extremity Injury, Lower Stated Complaint: Left knee pain Time Seen by Provider: 01/15/24 08:11 Source: patient Mode of arrival: Wheelchair History of Present Illness HPI Narrative: 28-year-old female presents for left knee pain. Last night she was getting out of her car when she thinks she may have twisted her knee and she fell to the ground. Reports pain with movement. No medications taken at home prior to arrival. Reports difficulty ambulating due to pain. Related Data Home Medications Medication Instructions Recorded Confirmed vits no.126-ferrous fum 1 tab PO DAILY 10/06/20 10/06/20 28 mg iron-folic acid 800 mcg tablet (Classic ) Allergies Allergy/AdvReac Type Severity Reaction Status Date / Time No Known Drug Allergies Allergy Verified 10/06/20 17:36 Patient History Medical History Patient denies significant medical history Social History Smoking Status: Former smoker Smoking Status: Former smoker alcohol intake frequency: 0-2 drinks per day Substance Use Type: does not use Exam Initial Vital Signs Initial Vital Signs: Vital Signs Temperature 98.6 F 01/15/24 08:21 Pulse Rate 105 H 01/15/24 08:21 Respiratory Rate 20 01/15/24 08:21 Blood Pressure 121/73 01/15/24 08:21 Pulse Oximetry 97 01/15/24 08:21 Oxygen Delivery Method Room Air 01/15/24 08:21 Const: Awake, alert, in pain Cardiac: regular rate, regular rhythm RESP: unlabored, clear bilaterally MSK: minimal swelling over L knee, pain wtih any ROM Skin: Warm, Dry, intact, no rashes Neuro: AO x3, CN II-XII grossly intact, moves all extremities Course Orders Ordered: Discontinued Medications Ketorolac Tromethamine (Ketorolac 30 Mg/Ml Vial) 30 mg IM NOW ONE Stop: 01/15/24 09:04 Last Admin: 01/15/24 09:10 Dose: 30 mg Documented By: JOSE Vital Signs Vital signs: Vital Signs - 8 hr 01/15/24 08:21 Temperature 98.6 F Pulse Rate 105 H Respiratory Rate 20 Blood Pressure 121/73 Pulse Oximetry 97 Oxygen Delivery Method Room Air MDM - Extremity Injury (Lower) Differential Diagnosis Differential diagnosis: Likely acute internal derangement of knee, fracture of femur and other (knee sprain) Imaging Data Extremity x-ray #1: Radiologist's Impression: PROCEDURE: XR KNEE LT 3V INDICATIONS: GLF TECHNIQUE: 3 views of the knee were acquired. COMPARISON: None. FINDINGS: Bones: No fractures or dislocations. No suspicious bony lesions. Soft tissues: Small joint effusion. No suspicious soft tissue calcifications. IMPRESSION: No acute bony abnormality or significant effusion. Dictated by: Jovani Tobar M.D. on 01/15/2024 at 8:55 Approved by: Jovani Tobar M.D. on 01/15/2024 at 8:55 [facility] Narrative Medical decision making narrative: Knee injury last night. X-ray shows no acute traumatic findings, likely sprain or strain from motion of knee while getting out of car. Patient placed in [place] wrap bandage for comfort, counseled on rice instructions. Given crutches for assistance. Note for work provided. Discharge Plan Departure Patient Disposition: Home Clinical Impression: Knee Injury Instructions: DI for Knee Sprain Activity Restrictions/Additional Instructions: You may take 400 mg of ibuprofen and 1000 mg of Tylenol every 4-6 hours for pain. Take no more than 4000 mg of Tylenol daily. Apply ice to your knee for swelling. Prescriptions: No Action Classic 28 mg iron- 800 mcg Tablet 1 tab PO DAILY Stand Alone Forms: Patient Portal/API, Work Release Note
[2024-01-15] MEDS: KETOROLAC 30 MG/ML VIAL IM (09:10)
[2024-01-15 09:27] VITALS: BP 115/69; PULSE 100; RESP 20; O2SAT 98
== END 2024-01-15 09:30 | disposition home or self-care (01) ==
PROVIDERS: Emergency Provider Emergency Medicine
DX: S89.92XA Unspecified injury of left lower leg, initial encounter (principal); X50.1XXA Overexertion from prolonged static or awkward postures, initial encounter
CPT/HCPCS: 73562; 96372; 99283; J1885

== ENCOUNTER 2024-09-19 10:43 | Emergency (ER) | payer MEDICAID, SELFPAY ==
[2024-09-19 11:09] VITALS: BP 122/58; PULSE 115; RESP 18; TEMP 37.9; O2SAT 100; BMI 29.2
[2024-09-19 11:58] LABS: COVID-19 CEPHEID 4-PLEX PCR Negative (Negative); Influenza A - CEPHEID Flu A POSITIVE (NEGATIVE); Influenza B - CEPHEID Flu B NEGATIVE (NEGATIVE); Respiratory Syncytial Virus Negative (Negative)
[2024-09-19] MEDS: IBUPROFEN 400 MG TABLET 800 MG PO (12:08)
[2024-09-19] MEDS: ONDANSETRON 4 MG ODT SL (12:16)
--- NOTE | 2024-09-19 12:20 | ED_ITS ---
<Statement entered by Phil Levy DO - 09/19/24 12:52> Dr. Levy: I was immediately available in the department for consultation. I did not actually see the patient. HPI - URI/Sore Throat General Chief Complaint: Upper Respiratory Symptoms Stated Complaint: Possible Flu, fever/cough Time Seen by Provider: 09/19/24 11:36 History of Present Illness HPI Narrative: 29-year-old female presents to the ED with fever, cough, nausea, vomiting, diarrhea for 3 days. Patient works in a daycare. No chest pain, shortness of breath. Related Data Home Medications Medication Instructions Recorded Confirmed vits no.126-ferrous fum 1 tab PO DAILY 10/06/20 10/06/20 28 mg iron-folic acid 800 mcg tablet (Classic ) Previous Rx's Medication Instructions Recorded albuterol sulfate 90 mcg/actuation 2 puff inhalation Q6H PRN 09/19/24 aerosol inhaler shortness of breath or wheezing #6.7 grams ondansetron 4 mg disintegrating 4 mg PO Q8H PRN nausea and 09/19/24 tablet vomiting #14 tabs Allergies Allergy/AdvReac Type Severity Reaction Status Date / Time No Known Drug Allergies Allergy Verified 10/06/20 17:36 Review of Systems Constitutional Constitutional: Reports body ache(s), Reports chills, Denies fatigue, Reports fever(s), Denies frequent falls, Denies lethargy and Denies weakness Eyes Eyes: Denies change in vision, Denies eye discharge, Denies irritation and Denies loss of vision ENT Ears, Nose, Mouth, and Throat: Denies change in voice, Denies dizziness, Denies neck pain, Denies sore throat and Denies throat swelling Cardiovascular Cardiovascular: Denies chest pain, Denies irregular heart rhythm, Denies lightheadedness, Denies palpitations, Denies dyspnea, Denies dyspnea on exertion and Denies orthopnea Respiratory Respiratory: Reports cough, Denies dyspnea, Denies dyspnea on exertion and Denie s wheezing Gastrointestinal Gastrointestinal: Denies abdominal pain, Denies change in bowel habits, Reports diarrhea, Reports nausea and Reports vomiting Musculoskeletal Musculoskeletal: Denies neck pain and Denies numbness Integumentary/Breasts Skin/Breast: Denies pruritus, Denies erythema, Denies rash and Denies wounds Neurologic Neurologic: Denies behavioral changes, Denies confusion, Denies dizziness, Denies frequent falls, Denies loss of vision, Denies numbness and Denies weakness Psychiatric Psychiatric: Denies anxiety, Denies behavioral changes, Denies confusion, Denies depression, Denies homicidal ideation and Denies suicidal ideation Endocrine Endocrine: Denies fatigue, Denies flushing and Denies palpitations Hematologic/Lymphatic Hematologic/Lymphatic: Denies easy bruising Allergic/Immunologic Allergic/Immunologic: Denies urticaria, Denies throat swelling and Denies wheezing Patient History Medical History Patient denies significant medical history Social History Smoking Status: Former smoker Smoking Status: Former smoker alcohol intake frequency: 0-2 drinks per day Exam Narrative Exam Narrative: Const General:?cooperative, healthy appearing and comfortable [facility] Head:?normal to inspection Ears:?hearing grossly normal bilaterally Nose:?external nose normal Face and sinus:?normal facial exam and sinuses nontender Mouth:?oral mucosae normal Throat:?posterior oropharynx normal Eyes General:?appearance normal, both eyes and all related structures Neck Neck:?normal visual inspection and no lymphadenopathy noted Resp Effort & Inspection:?normal respiratory effort Auscultation:?clear to auscultation bilaterally Cardio Rate:?regular rate Rhythm:?regular rhythm Neuro General:?patient alert, patient awake and patient oriented x3 Initial Vital Signs Initial Vital Signs: Vital Signs Temperature 100.3 F H 09/19/24 11:09 Pulse Rate 115 H 09/19/24 11:09 Respiratory Rate 18 09/19/24 11:09 Blood Pressure 122/58 L 09/19/24 11:09 Pulse Oximetry 100 09/19/24 11:09 Oxygen Delivery Method Room Air 09/19/24 11:09 Course Orders Ordered: ED Orders 09/19/24 11:15 Covid-19 + FLU A/B + RSV - PCR Stat Discontinued Medications Ibuprofen (Ibuprofen 400 Mg Tablet) 800 mg PO NOW ONE Stop: 09/19/24 12:02 Last Admin: 09/19/24 12:08 Dose: 800 mg Documented By: JOE Ondansetron HCl (Ondansetron 4 Mg Odt) 4 mg SL NOW ONE Stop: 09/19/24 12:15 Last Admin: 09/19/24 12:16 Dose: 4 mg Documented By: JOE Vital Signs Vital signs: Vital Signs - 8 hr 09/19/24 11:09 Temperature 100.3 F H Pulse Rate 115 H Respiratory Rate 18 Blood Pressure 122/58 L Pulse Oximetry 100 Oxygen Delivery Method Room Air MDM - URI/Sore Throat Lab Data Labs: Lab Results 09/19/24 Range/Units 11:15 SARS-CoV-2 (PCR) Negative (Negative) Influenza A (RT-PCR) Flu a positive H (NEGATIVE) Influenza B (RT-PCR) Flu b negative (NEGATIVE) RSV (PCR) Negative (Negative) MDM Narrative Medical decision making narrative: 29-year-old female presents to the ED with fever, cough, nausea, vomiting, diarrhea for 3 days. Patient tested positive for influenza A. Patient was given a dose of Zofran in the ED. Prescription for Zofran sent. Recommend supportive measures including good hydration, Tylenol, ibuprofen, [id number] cough and cold remedies. Recommend follow-up with PCP. ED return precautions discussed with patient. Patient verbalized understanding. Medical records reviewed: Yes Discharge Plan Departure Patient Disposition: Home Clinical Impression: Influenza A Instructions: DI for Influenza -- Adult Activity Restrictions/Additional Instructions: You were evaluated in the ED today for a fever, nausea, vomiting. You tested positive for influenza A. You are being prescribed Zofran for nausea as needed. Please continue to stay well hydrated. You may take [id number] cough and cold remedies as well as Tylenol, ibuprofen for aches and pains and fever. Return to the ED if you have worsening symptoms, chest pain, shortness of breath. Prescriptions: New ondansetron 4 mg tablet,disintegrating 4 mg PO Q8H PRN (Reason: nausea and vomiting) Qty: 14 0RF albuterol sulfate 90 mcg/actuation HFA aerosol inhaler 2 puff inhalation Q6H PRN (Reason: shortness of breath or wheezing) Qty: 6.7 0RF No Action Classic 28 mg iron- 800 mcg Tablet 1 tab PO DAILY Stand Alone Forms: Patient Portal/API/Survey, Work Release Note
== END 2024-09-19 12:31 | disposition home or self-care (01) ==
PROVIDERS: Student in an Organized Health Care Education/Training Program; Emergency Provider Student in an Organized Health Care Education/Training Program
DX: J10.1 Influenza due to other identified influenza virus with other respiratory manifestations (principal); R05.9 Cough, unspecified; R11.2 Nausea with vomiting, unspecified; R19.7 Diarrhea, unspecified
CPT/HCPCS: 0241U; 99283